=== PATIENT | male | born 1985 | race Two or more races ===

== ENCOUNTER 2025-05-31 14:39 | Emergency (ER) | payer OTHER ==
[~2025-05-31] VITALS: Ht 165.1 cm; Wt 69.4 kg
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
[2025-05-31] MEDS ORDERED: MAX5OPS OP (16:43)
[2025-05-31 17:00] VITALS: BP 142/86; PULSE 54; RESP 16; TEMP 98.4; O2SAT 98
== END 2025-05-31 17:18 | disposition home or self-care (01) ==
LOC: ER 14:39
DX: T26.51XA Corrosion of right eyelid and periocular area, initial encounter (principal); W44.9XXA Unspecified foreign body entering into or through a natural orifice, initial encounter; Y93.89 Activity, other specified; Y92.89 Other specified places as the place of occurrence of the external cause; Y99.8 Other external cause status